=== PATIENT | female | born 1985 | race African-American/Black ===

== ENCOUNTER 2016-07-20 10:55 | Emergency (ER) | payer MEDICAID | END 2016-07-20 12:23 | disposition home or self-care (01) | LOC: D.ER 10:55 | DX: K04.7 Periapical abscess without sinus (principal); K02.9 Dental caries, unspecified; K08.89 Other specified disorders of teeth and supporting structures; F17.200 Nicotine dependence, unspecified, uncomplicated ==

== ENCOUNTER 2017-03-13 11:10 | Emergency (ER) | payer MEDICAID | END 2017-03-13 12:06 | disposition home or self-care (01) | LOC: D.ER 11:10 | DX: K02.9 Dental caries, unspecified (principal); K08.89 Other specified disorders of teeth and supporting structures ==

== ENCOUNTER 2017-03-16 08:23 | Emergency (ER) | payer MEDICAID ==
[2017-03-16 09:21] LABS: BASOPHILS 0.2 % (0-2); EOSINOPHILS 1.7 % (0-7); HEMATOCRIT 34.8 % (36.0-48.0); HEMOGLOBIN 11.7 g/dL (12-16); IMMATURE GRANULOCYTES 0.2 % (0-5); LYMPHOCYTES 35.4 % (15-50); MCH 30.5 pg (26.0-34.0); MCHC 33.6 g/dL (31.0-37.0); MCV 90.9 fL (80.0-100.0); MEAN PLATELET VOLUME 9.6 fL (7.4-10.4); MONOCYTES 8.2 % (2-11); NEUTROPHILS 54.3 % (40-80); PLATELET COUNT 367 10x3/uL (130-400); RBC 3.83 10x6/uL (4.00-5.40); RDW 12.4 % (11.5-14.5); WBC 5.2 10x3/uL (4.8-10.8)
[2017-03-16 09:58] LABS: ALBUMIN 3.8 g/dL (3.4-5.0); ALKALINE PHOSPHATASE 92 U/L (46-116); ALT (SGPT) 42 U/L (10-68); BILIRUBIN - TOTAL 0.62 mg/dL (0.2-1.3); CALC OSMOLALITY 270 mosm/kg (275-300); CALCIUM 9.4 mg/dL (8.5-10.1); CARBON DIOXIDE 24.3 mmol/L (21.0-32.0); CHLORIDE - SERUM 102 mmol/L (98-107); CREATININE - SERUM 0.7 mg/dL (0.6-1.3); GLUCOSE 107 mg/dL (74-106); POTASSIUM - SERUM 3.6 mmol/L (3.5-5.1); SODIUM 136 mmol/L (136-145); UREA NITROGEN 9 mg/dL (7-18); eGFR NON AFRICAN AMERICAN > 90 mL/min (90-120)
[2017-03-16 10:09] LABS: TROPONIN-I < 0.017 ng/mL (0.000-0.060)
== END 2017-03-16 11:12 | disposition home or self-care (01) ==
LOC: D.ER 08:23
PROVIDERS: Emergency Medicine
DX: R07.89 Other chest pain (principal); F17.200 Nicotine dependence, unspecified, uncomplicated

== ENCOUNTER 2018-03-13 01:50 | Emergency (ER) | payer MEDICAID ==
[~2018-03-13] VITALS: Ht 157.5 cm; Wt 72.7 kg
[2018-03-13 02:12] VITALS: Ht 157.5 cm; Wt 72.7 kg
[2018-03-13] MEDS ORDERED: CLEOCIN HCL300 MG PO (03:29)
[2018-03-13] MEDS ORDERED: NORCO 7.5/325 T1 TA1 PO (03:29)
[2018-03-13 03:43] VITALS: BP 126/82
== END 2018-03-13 03:45 | disposition home or self-care (01) ==
LOC: D.ER 01:50
DX: K04.7 Periapical abscess without sinus (principal); K02.9 Dental caries, unspecified; K08.89 Other specified disorders of teeth and supporting structures; F17.200 Nicotine dependence, unspecified, uncomplicated

== ENCOUNTER 2018-07-19 21:04 | Emergency (ER) | payer MEDICAID ==
[~2018-07-19] VITALS: Ht 157.5 cm; Wt 79.5 kg
[~2018-07-19 21:04] MED LIST: CLEOCIN HCL300 MG PO; NORCO 7.5/325 T1 TA1 PO
[2018-07-19 21:38] VITALS: Ht 157.5 cm; Wt 79.5 kg
[2018-07-19] MEDS ORDERED: ROBAXIN500 MG PO (21:51)
[2018-07-19] MEDS ORDERED: MEDROL DOSE PACK4 MG PO (21:51)
[2018-07-20 01:35] VITALS: BP 114/71
== END 2018-07-20 01:36 | disposition home or self-care (01) ==
LOC: D.ER 21:04
DX: S39.012A Strain of muscle, fascia and tendon of lower back, initial encounter (principal); X58.XXXA Exposure to other specified factors, initial encounter; Y93.89 Activity, other specified; Y92.89 Other specified places as the place of occurrence of the external cause

== ENCOUNTER 2018-07-28 21:10 | Emergency (ER) | payer OTHER ==
[~2018-07-28] VITALS: Ht 157.5 cm; Wt 81.4 kg
[~2018-07-28 21:10] MED LIST changes: +MEDROL DOSE PACK4 MG PO; +ROBAXIN500 MG PO
[2018-07-28 21:14] VITALS: Ht 157.5 cm; Wt 81.4 kg
[2018-07-28] MEDS ORDERED: TORADOL10 MG PO (21:48)
[2018-07-28 23:07] VITALS: BP 121/78
== END 2018-07-28 22:35 | disposition home or self-care (01) ==
LOC: D.ER 21:10
DX: M65.4 Radial styloid tenosynovitis [de Quervain] (principal); G56.01 Carpal tunnel syndrome, right upper limb

== ENCOUNTER 2018-12-17 06:40 | Day surgery (SDC) | payer OTHER ==
[2018-12-16 11:03] LABS: HEMATOCRIT 37.9 % (36.0-48.0); HEMOGLOBIN 12.8 g/dL (12-16); MCH 30.2 pg (26.0-34.0); MCHC 33.8 g/dL (31.0-37.0); MCV 89.4 fL (80.0-100.0); MEAN PLATELET VOLUME 9.6 fL (7.4-10.4); RBC 4.24 10x6/uL (4.00-5.40); RDW 12.7 % (11.5-14.5); WBC 5.7 10x3/uL (4.8-10.8)
[~2018-12-17] VITALS: Ht 157.5 cm; Wt 81.2 kg
[~2018-12-17 06:40] MED LIST changes: +TORADOL10 MG PO
[2018-12-17 07:11] VITALS: BP 110/72; Ht 157.5 cm; Wt 81.2 kg
[2018-12-17 07:18] LABS: HCG URINE NEGATIVE (NEGATIVE)
[2018-12-17] MEDS ORDERED: PERCOCET 5-3251 TAB PO (09:49)
[2018-12-17] MEDS ORDERED: DURICEF500 MG PO (09:49)
--- NOTE | 2018-12-20 09:59 | OP ---
PATIENT NAME: SARAH TILLEY MEDICAL RECORD: [id number] :89 LOCATION:[facility] ADMISSION DATE: SURGEON: ZAC FULTON DO DATE OF OPERATION: 12/17/2018 PROCEDURE PERFORMED: Right wrist first dorsal compartment release. PREOPERATIVE DIAGNOSIS: Right radial styloid tenosynovitis. POSTOPERATIVE DIAGNOSIS: Right radial styloid tenosynovitis. INDICATIONS: Ms. Tilley is a right hand dominant female who has had pain and tenderness moving her thumb and had a positive Corby's test. She has tried injections and all manner of nonoperative treatment. She was tired dealing with the pain and wanted something done. I told her that we could do [place], release the sheath and debride the tendons and take a look and provide her relief. I informed her of the risks including damage to the radial sensory nerve, continued pain, recurrence and she was okay with that and signed the consent as well as I also informed of the risk of infection and bleeding. SURGEON: Zac Fulton DO DESCRIPTION OF PROCEDURE: The patient was taken to the operative suite, laid in supine position, given general anesthetic. Timeout was performed, everyone was in agreeance with the correct site, side, patient and procedure. The patient was given a gram of Ancef preoperatively. The right upper extremity was then prepped and draped in sterile fashion. The right upper extremity was then exsanguinated with an Esmarch. Tourniquet was inflated to 250 mmHg, it was up for 17 minutes. Incision then began over the radial styloid longitudinally. Careful dissection was made down to the first dorsal compartment, seemed to be quite thick and tight. This was released and then the tendons were debrided. The EPB and APL were both pulled out of the incision to ensure that they were intact and there were no other spots of impingement and they were not. I then made a lengthening incision on the sheath and tacked it back down to the dorsal surface of the stump that had been cut with a 5-0 Monocryl. This was loosely tightened to keep the tendons from subluxing volarly. It was also inspected prior to the closure and there were no extra slips of the APL. The tourniquet was then let down and any bleeding was coagulated with a bipolar and then the site was injected with 7 mL of 0.25% Marcaine with epinephrine and then closed with 5-0 Monocryl in an inverted interrupted fashion. Steri-Strips, Adaptic, 4 x 4's, Kerlix, and a Coban was lightly wrapped around the skin. She was awakened and taken to recovery in stable condition. BLOOD LOSS: Minimal. COMPLICATIONS: None. TRANSINT:[id number] Voice Confirmation ID: [id number] DOCUMENT ID: [id number] OPERATIVE REPORT [id number] SARAH TILLEY,ZAC Stovall DO at 0959 CC: [id number] DICTATION DATE: 12/17/18 0953 [employer] OPERATOR HELPER: 12/17/18 1149 [facility] 12/17/18 [id number] [place] [id number]
== END 2018-12-17 11:50 | disposition home or self-care (01) ==
LOC: D.OPS 06:40 → D.PAN 07:00 → D.OPS 07:40
PROVIDERS: Anesthesiology; ATTEND Orthopaedic Surgery
DX: M65.4 Radial styloid tenosynovitis [de Quervain] (principal); Z01.812 Encounter for preprocedural laboratory examination

== ENCOUNTER 2019-06-20 12:39 | Emergency (ER) | payer SELFPAY ==
[~2019-06-20] VITALS: Ht 157.5 cm; Wt 79.5 kg
[~2019-06-20 12:39] MED LIST changes: +DURICEF500 MG PO; +PERCOCET 5-3251 TAB PO
[2019-06-20 12:45] VITALS: Ht 157.5 cm; Wt 79.5 kg
[2019-06-20] MEDS ORDERED: IBUPROFEN400 MG PO (13:29)
[2019-06-20] MEDS ORDERED: TESSALON PERLE100 MG PO (13:29)
[2019-06-20] MEDS ORDERED: ACETAMINOPHEN500 M1 PO (13:29)
[2019-06-20] MEDS ORDERED: TAMIFLU75 MG PO (13:29)
[2019-06-20 14:04] VITALS: BP 99/59
== END 2019-06-20 14:50 | disposition home or self-care (01) ==
LOC: D.ER 12:39
DX: J11.1 Influenza due to unidentified influenza virus with other respiratory manifestations (principal); Z72.0 Tobacco use

== ENCOUNTER 2019-07-01 18:42 | Emergency (ER) | payer SELFPAY ==
[~2019-07-01] VITALS: Ht 157.5 cm; Wt 80.9 kg
[~2019-07-01 18:42] MED LIST changes: +ACETAMINOPHEN500 M1 PO; +IBUPROFEN400 MG PO; +TAMIFLU75 MG PO; +TESSALON PERLE100 MG PO
[2019-07-01 18:57] VITALS: Ht 157.5 cm; Wt 80.9 kg
[2019-07-01 19:20] LABS: BASOPHILS 0 % (0-2); EOSINOPHILS 1.1 % (0-7); HEMATOCRIT 37.8 % (36.0-48.0); HEMOGLOBIN 12.1 g/dL (12-16); IMMATURE GRANULOCYTES 0.4 % (0-5); LYMPHOCYTES 19.7 % (15-50); MCV 93.6 fL (80.0-100.0); MEAN PLATELET VOLUME 9.1 fL (7.4-10.4); MONOCYTES 15.7 % (2-11); NEUTROPHILS 63.1 % (40-80); RBC 4.04 10x6/uL (4.00-5.40); RDW 12.3 % (11.5-14.5); WBC 9.2 10x3/uL (4.8-10.8)
[2019-07-01 19:23] LABS: PLATELET COUNT 500 10x3/uL (130-400)
[2019-07-01 19:42] LABS: CALC OSMOLALITY 276 mosm/kg (275-300); CALCIUM 9.2 mg/dL (8.5-10.1); CARBON DIOXIDE 29.5 mmol/L (21.0-32.0); CHLORIDE - SERUM 102 mmol/L (98-107); CREATININE - SERUM 0.8 mg/dL (0.6-1.3); GLUCOSE 98 mg/dL (74-106); POTASSIUM - SERUM 3.7 mmol/L (3.5-5.1); SODIUM 140 mmol/L (136-145); UREA NITROGEN 8 mg/dL (7-18); eGFR NON AFRICAN AMERICAN 88 mL/min (90-120)
[2019-07-01 19:45] LABS: ALBUMIN 3.4 g/dL (3.4-5.0); ALKALINE PHOSPHATASE 102 U/L (30-120); ALT (SGPT) 33 U/L (10-68); BILIRUBIN - TOTAL 0.53 mg/dL (0.2-1.3); PROTEIN - SERUM 7.7 g/dL (6.4-8.2)
[2019-07-01 20:38] VITALS: BP 135/78
== END 2019-07-01 20:40 | disposition home or self-care (01) ==
LOC: D.ER 18:42
PROVIDERS: Family Medicine
DX: J11.1 Influenza due to unidentified influenza virus with other respiratory manifestations (principal); R51 Headache; Z72.0 Tobacco use